=== PATIENT | female | born 1975 | race Caucasian/White ===

== ENCOUNTER 2020-02-05 | Emergency (ER) | payer OTHER ==
[2020-02-05] MEDS ORDERED: ULTRAM50 M1 PO (16:46)
[2020-02-05] MEDS ORDERED: CLINDAMYCIN300 M1 PO (16:46)
== END 2020-02-05 16:58 | disposition home or self-care (01) ==
DX: K02.9 Dental caries, unspecified (principal); K08.439 Partial loss of teeth due to caries, unspecified class